=== PATIENT | male | born 1955 | race Caucasian/White ===

== ENCOUNTER 2016-10-10 15:26 | Emergency (ER) | payer OTHER ==
[~2016-10-10] VITALS: Ht 180.3 cm; Wt 106.8 kg
[~2016-10-10 15:26] MED LIST: ACET-2404 PO; ALBU2.5V4 IH; ATOR20TA PO; Aspirin PO; BACI120O TP; CETI-263 PO; CLOP75TA3 PO; CYCL10TA9 PO; FLUT12AE8 IH; FLUT16SP NS; HYDR12.55 PO; Hydrocodone/Acetaminophen PO; LISI-609 PO; METO50TA7 PO; OMEP-113 PO; TRAM50TA2 PO; TRIA15OI9 TOP
[2016-10-10 15:30] VITALS: BP 181/100; PULSE 72; RESP 16; O2SAT 97
[2016-10-10] MEDS ORDERED: 0.9% Sodium Chloride 1,000 ML IV ONE (15:39)
--- NOTE | 2016-10-10 15:39 | ED.REPORT ---
HPI-General Illness Date of Service Oct 10, 2016 ED Provider: Dr. Trenton Hansen The patient is a 60 year old male who presents to the ED due to 9/10, lower back pain, radiating to the lower abdomen onset yesterday. Pain is exacerbated by movement. Pain is worse on the right flank and hurts when he attempts to bear weight on the right leg. He confirms that the pain is similar to previous kidney stones he has had. Pt denies chest pain, nausea, vomiting, diarrhea, hematochezia, bloody/tarry stools, fever, shortness of breath, or any recent accident/injury that could have caused the pain. No bowel or bladder incontinence, urinary retention. Nursing Notes Stated Complaint: BACK PAIN/FROM URGENT CARE Chief Complaint: Back Pain or Injury Nursing Notes Reviewed: Yes Allergies: Coded Allergies: nortriptyline (Verified Allergy, Severe, 10/10/16) Penicillins (Verified Allergy, Mild, RASH, 10/10/16) RASH Carob Powder (Verified Allergy, Unknown, GI distress, 10/10/16) monosodium glutamate (Verified Allergy, Unknown, GI distress, 10/10/16) Uncoded Allergies: ANTIDPRESSANTS (Adverse Reaction, Unknown, 01/25/09) Scheduled ([Aspirin]) 81 MG TAB.CHEW 81 MG PO DAILY Atorvastatin (Lipitor) 20 Mg Tablet 40 MG PO HS Bacitracin Zinc (Bacitracin Zinc Ointment) 120 Gm Oint...g. 1 APPLIC TP BID Clopidogrel Bisulfate (Plavix) 75 Mg Tablet 75 MG PO DAILY Fluticasone Propionate (Flovent HFA 110 mcg) 12 Gm Aer.w.adap 1 PUFF IH BID Hydrochlorothiazide (Hydrochlorothiazide) 12.5 Mg Tablet 6.25 MG PO DAILY Lisinopril (Zestril) 5 Mg Tablet 5 MG PO DAILY Metoprolol Succinate ER (Toprol XL) 50 Mg Tablet.er 50 MG PO DAILY Omeprazole Magnesium (Omeprazole) 20 Mg Capsule.dr 20 MG PO HS Triamcinolone Acetonide (Triamcinolone Acetonide Ointment) 15 Gm Oint...g. 1 APPL TOP BID Scheduled PRN ([Hydrocodone/Acetaminophen]) 1 TAB TABLET 1-2 TAB PO Q4H PRN PRN For Pain Acetaminophen (Tylenol Extra Strength) 500 Mg Tablet 1,000 MG PO HS PRN PRN For Pain Albuterol Neb Soln (Albuterol Neb Soln) 2.5 Mg/3 Ml Vial.neb 2.5 MG IH QID PRN PRN For Shortness of Breath Cetirizine HCl (Cetirizine HCl) 10 Mg Tablet 10 MG PO DAILY PRN PRN ALLERGIES Cyclobenzaprine (Cyclobenzaprine) 10 Mg Tablet 5-10 MG PO TID PRN PRN For Spasm Fluticasone Propionate (Fluticasone Propionate Nasal) 16 Gm [place].susp 1-2 SPRAY NS BID PRN PRN NASAL CONGESTION Tramadol (Tramadol) 50 Mg Tablet 25-50 MG PO Q6 PRN PRN For Pain General Time Seen by MD: 15:39 Chief Complaint Back pain Hx Obtained From: Patient Arrived By: Walk-in Sudden in Onset?: Yes Onset Occurred: Yesterday Symptom Duration: Since onset Location: : Back Quality: Painful Radiation: : Abdomen Severity: Current: Pain level 9 out of 10 Recent Healthcare: No recent doctor visit, No recent hospitalization Similar Sx Previous: No Past Medical History Past Medical History Arthritis Reports: Asthma, COPD, Hypertension Past Surgical History retrograde left heart catheterization performed 08/06/14 Reports: Cholecystectomy Family History Sister has breast cancer Smoking History Never Smoker Social History Alcohol Use: Denies alcohol use Drug Use: Denies drug use Review of Systems Full Review of Systems Constitutional: Denies: Fever Respiratory: Denies: Shortness of breath Cardiovascular: Reports: Chest pain GI: Reports: Abdominal pain, Denies: Bloody/tarry stool, Diarrhea, Hematochezia, Nausea, Vomiting Male: Denies Incontinence, Denies Urinary urgency Musculoskeletal: Reports: Back pain Complete sys rev & neg: except as marked. Physical Exam Nursing note and vitals reviewed. Constitutional: Well-developed, well-nourished. Not diaphoretic. Head: Normocephalic and atraumatic. Mouth/Throat: Oropharynx is clear and moist. No oropharyngeal exudate. Eyes: EOM are normal. Pupils are equal, round, and reactive to light. Neck: Supple, no tracheal deviation. Cardiovascular: Normal rate, regular rhythm. Equal and intact distal pulses throughout. Pulmonary/Chest: Effort normal and breath sounds normal. No respiratory distress. Abdominal: Soft. No distension. Diffuse abdominal tenderness to palpation, no rebound, or guarding. No palpable masses. Musculoskeletal: Range of motion grossly intact, moving all extremities. No edema. No andres tenderness to palpation in the spine. Minimal paraspinal tenderness to palpation in lumbar spine. Neurological: AOx3. Grossly nonfocal exam. Strength and sensation intact and equal to bilateral upper and lower extremities grossly intact. Skin: Warm and dry, no rashes or pallor appreciated. Psychiatric: Appropriate mood and affect. Behavior appears normal. Vital Signs Vital Signs Date Time Temp Pulse Resp B/P Pulse Ox O2 Delivery O2 Flow Rate FiO2 10/10/16 19:43 68 16 98 Room Air 10/10/16 17:29 67 16 154/89 96 Room Air 10/10/16 15:30 72 16 181/100 97 Room Air Initial VS: Reviewed Interpretation & Diagnostics Lab Results Interpretation Result Diagram: 10/10/16 1540 10/10/16 1540 Test 10/10/16 15:40 10/10/16 16:03 White Blood Count 7.4th/mm3 (3.8-10.1) Red Blood Count 5.10mil/mm3 (4.40-5.80) Hemoglobin 14.3g/dL (13.8-17.2) Hematocrit 42.5% (41.0-50.0) Mean Corpuscular Volume 83.3fL (81-100) Mean Corpuscular Hemoglobin 28.0pg (27.0-35.0) Mean Corpuscular Hemoglobin Concent 33.6% (32.0-37.0) Red Cell Distribution Width 13.8% (12.3-15.4) Platelet Count 230bil/L (150-400) Neutrophils (%) (Auto) 67.3% (40-74) Lymphocytes (%) (Auto) 22.1% (14-46) Monocytes (%) (Auto) 7.0% (4-12) Eosinophils (%) (Auto) 3.0% (0-5) Basophils (%) (Auto) 0.5% (0-3) Prothrombin Time 10.5sec (8.1-12.5) Prothromb Time International Ratio 0.98ratio Sodium Level 136mEq/L (134-144) Potassium Level 4.0mEq/L (3.5-5.2) Chloride Level 102mEq/L (97-108) Carbon Dioxide Level 19mmol/L (18-29) Blood Urea Nitrogen 9mg/dL (6-24) Creatinine 0.71mg/dL (0.76-1.27) Estimat Glomerular Filtration Rate 121mL/min (>59) Glucose Level 105mg/dL (60-99) Lactic Acid Level 1.2mmol/L (0.4-2.0) Calcium Level 9.4mg/dL (8.5-10.1) Magnesium Level 2.2mg/dL (1.6-2.6) Total Bilirubin 0.4mg/dL (0.0-1.2) Aspartate Amino Transf (AST/SGOT) 19U/L (0-50) Alanine Aminotransferase (ALT/SGPT) 29U/L (0-44) Alkaline Phosphatase 112U/L (25-160) Total Protein 7.8g/dL (6.4-8.4) Albumin 4.3g/dL (3.4-5.0) Lipase 25U/L (13-60) Urine Color Yellow (YELLOW) Urine Appearance Clear (CLEAR,HAZY) Urine pH 6.0 (5.0-8.0) Urine Specific [place] 1.005 (1.003-1.035) Urine Protein Negativemg/dL (NEG,TRACE) Urine Glucose (UA) Negativemg/dL (NEGATIVE) Urine Ketones Negativemg/dL (NEGATIVE) Urine Occult Blood Negative (NEGATIVE) Urine Nitrite Negative (NEGATIVE) Urine Bilirubin Negative (NEGATIVE) Urine Urobilinogen Normalmg/dL (NORMAL) Urine Leukocyte Esterase Negative (NEGATIVE) Urine RBC 0-2/hpf (0-2) Urine WBC 0-5/hpf (0-5) Urine Epithelial Cells Occasional/hpf (NONE-MOD) Urine Crystals None seen (NONE SEEN) Urine Bacteria None/hpf (NONE-FEW) Urine Hyaline Casts None/lpf (NONE) Urine Granular Casts None seen (NONE SEEN) Urine Waxy Casts None seen (NONE SEEN) Urine Red Blood Cell Casts None seen (NONE SEEN) Urine White Blood Cell Casts None seen (NONE SEEN) Urine Mucus None seen (None Seen) Urine Trichomonas None seen (NONE SEEN) Urine Yeast None (NONE SEEN) Urinalysis Comment None Urine Culture Reflexed Not indicated CT Abd / Pelvis Interpretation IMPRESSION: Overall, no acute abnormality. No evidence of aortic aneurysm. No bowel obstruction. Normal appendix. Mild hepatic steatosis. Simple appearing right renal cyst. Small right inguinal fat containing hernia. Dictated by: Maged Hanks M.D. on 10/10/2016 at 17:44 Approved by: Maged Hanks M.D. on 10/10/2016 at 17:50 Study type: Abdominal CT no contrast Interpretation / Wet Read by: Interpret - Radiologist Re-Eval/Medical Decision Med Decision/Clinical Course 60-year-old male with a complex past medical history presenting to the ED for evaluation of lower back pain radiating around to the right side of his abdomen. Given his history, a CT scan of his abdomen was obtained, negative for any acute abnormalities that would explain his current symptoms. No evidence of abdominal aortic aneurysm. Laboratory studies reassuring. Patient does have some hypertension here, however otherwise grossly within normal limits. Upon reassessment, patient reports some improvement in his symptoms. No bowel or bladder incontinence, urinary retention, or other red flags that would suggest a compressive syndrome. Plan discharge home with careful return precautions, PCP follow-up. He is agreeable to the plan as stated, no further questions. Time of Eval: 19:15 Re-Evaluation/Progress Note: Pt rechecked. Counseled Regarding: Diagnosis, Lab results, Need for follow-up, When/why to return to ED Discharge & Departure Primary Impression: Low back pain Chronicity: acute Back pain laterality: midline Sciatica presence: unspecified whether sciatica present Qualified Code: M54.5 - Low back pain Disposition: Home Discharge Condition All VS Reviewed: Yes Condition: Stable Patient Instructions: Acute Low Back Pain (ED) Additional Instructions: Thank you for entrusting us with your care today. Your abdominal CT did not show any signs of an aneurysm at this time, nor any other issues that would be responsible for your current symptoms. I do not suspect any emergent causes for your symptoms. Use Tylenol and Ibuprofen as needed for pain. Follow up with your primary care physician in 1-2 days. Return to the Emergency Department if you experience any new or worsening symptoms including numbness, weakness, tingling, loss of consciousness, or increased pain, or if you lose control of your bowel or bladder or feel like you can't urinate. Referrals: Stevan Maxwell MD (PCP) Scribe Attestation Portion of this note were transcribed by Halle Mitchell. I, Dr. Hansen, personally performed the history, physical exam, and medical decision-making: I reviewed and confirmed the accuracy for the information in the transcribed note. Signed by: danii Ramirez, 10/10/16 1800 copies to: Stevan Maxwell MD, William B MD Oct 10, 2016 15:39 Halle Mitchell Oct 10, 2016 15:53 tingling, loss of consciousness, or increased pain, or if you lose control of your bowel or bladder or feel like you can't urinate. Referrals: Stevan Maxwell MD (PCP) Danii Attestation Portion of this note were transcribed by Halle Mitchell. I, Dr. Hansen, personally performed the history, physical exam, and medical decision-making: I reviewed and confirmed the accuracy for the information in the transcribed note. Signed by: danii Ramirez, 10/10/16 1800 copies to: Stevan Maxwell MD, William B MD Oct 10, 2016 15:39 Halle Mitchell Oct 10, 2016 15:53
[2016-10-10] MEDS ORDERED: Ondansetron 2 mg/mL 2 mL Inj IVPUSH PRN (15:40)
[2016-10-10] MEDS: HYDROmorphone 1 mg/mL Inj IVPUSH PRN ×2 (15:59→17:33)
[2016-10-10 16:07] LABS: BASOPHILS % (AUTO) 0.5 % (0-3); Mean Corpuscular Volume 83.3 fL (81-100); NEUTROPHILS % (AUTO) 67.3 % (40-74); Platelet Count 230 bil/L (150-400)
[2016-10-10 16:18] LABS: INR 0.98 ratio
[2016-10-10 16:25] LABS: Magnesium 2.2 mg/dL (1.6-2.6)
[2016-10-10 16:31] LABS: APPEARANCE,URINE CLEAR (CLEAR,HAZY); COLOR,URINE YELLOW (YELLOW); OCCULT BLOOD,URINE NEGATIVE (NEGATIVE); UROBILINOGEN,URINE NORMAL (NORMAL)
[2016-10-10 17:29] VITALS: BP 154/89; PULSE 67; RESP 16; O2SAT 96
--- NOTE | 2016-10-10 17:52 | DRSVH ---
PROCEDURE: CT ABDOMEN AND PELVIS WITH CONTRAST ([id number]) INDICATIONS: abd pain, back pain; eval AAA, SBO, other abnl TECHNIQUE: After the administration of intravenous contrast, 5 mm thick sections acquired from the diaphragm to the symphysis. 5 mm coronal and sagittal reformats were acquired. For radiation dose reduction, the following was used: automated exposure control, adjustment of mA and/or kV according to patient siz e. COMPARISON: None. FINDINGS: Image quality: Excellent. ABDOMEN: Lung bases: Dependent atelectasis in the lung bases bilaterally. Heart size is normal. Solid organs: Hepatic steatosis, mild. Subcentimeter hypodensity seen in the dome the liver on image 15, too small to characterize definitively and technically indeterminate. and spleen are normal in si ze and enhancement. Gallbladder negative. Biliary system is non dilated. Pancreas enhances normall y. No adrenal nodules. Kidneys demonstrate normal size and enhancement, without hydronephrosis. Si mple appearing 5 cm right renal cyst on image 36. Peritoneum and bowel: Bowel loops demonstrate normal wall thickness and caliber. No free fluid or a ir. Appendix appears normal. The rectum is decompressed. No evidence of acute diverticulitis. There is mild to moderate stool scattered throughout the colon. Nodes and vessels: No retroperitoneal or mesenteric adenopathy by size criteria. Aorta and inferior vena cava are normal in size. No aortic aneurysm seen Miscellaneous: No ventral hernias. PELVIS: Genitourinary: Bladder wall thickness is normal. Miscellaneous: Small fat-containing right inguinal hernia. No pelvic adenopathy by size criteria. Bones: Multiple chronic appearing left rib fractures with callus formation. No suspicious bony lesio ns. No vertebral body compression fractures. IMPRESSION: Overall, no acute abnormality. No evidence of aortic aneurysm. No bowel obstruction. Normal appendix. Mild hepatic steatosis. Simple appearing right renal cyst. Small right inguinal fat containing hernia. Dictated by: Maged Hanks M.D. on 10/10/2016 at 17:44 Approved by: Maged Hanks M.D. on 10/10/2016 at 17:50
[2016-10-10 19:43] VITALS: PULSE 68; RESP 16; O2SAT 98
== END 2016-10-10 19:43 | disposition home or self-care (01) ==
LOC: SED 15:26
DX: M54.5 Low back pain (principal); I10 Essential (primary) hypertension; J44.9 Chronic obstructive pulmonary disease, unspecified; Z95.5 Presence of coronary angioplasty implant and graft; Z90.49 Acquired absence of other specified parts of digestive tract; Z79.82 Long term (current) use of aspirin; Z88.0 Allergy status to penicillin; Z88.8 Allergy status to other drugs, medicaments and biological substances; Z91.02 Food additives allergy status
CPT/HCPCS: 36415; 74177; 80053; 81000; 83605; 83690; 83735; 85025; 85610; 96374; 96376; 99285; G0463; J1170; J7030; Q9967